=== PATIENT | male | born 1975 | race Caucasian/White ===

== ENCOUNTER 2017-06-09 14:54 | Emergency (ER) | payer BC ==
[2017-06-09 15:16] VITALS: BP 138/91
--- NOTE | 2017-06-09 15:46 | UC ---
Lower Extremity/Ankle HPI - HPI Summary HPI Summary: 2 days ago patient had his left great toe on a piece of furniture at his home. He yesterday while at work he noted he was unable to walk flat-footed needed to walk on [place] lateral side of his foot had severe amount of pain in his right great toe MP joint. Area is erythematous warm and tender to touch. Today it work he was essentially unable to wear his work shoes due to the pain in that joint - History of Current Complaint Chief Complaint: UCLowerExtremity Stated Complaint: TOE INJURY Time Seen by Provider: 06/09/17 15:39 Hx Obtained From: Patient Onset/Duration: Sudden Onset, Lasting Days - 2, Still Present, Worse Since - today Severity Initially: Moderate Severity Currently: Moderate Pain Intensity: 4 Pain Scale Used: 0-10 Numeric Aggravating Factor(s): Standing, Ambulation Alleviating Factor(s): Rest, Elevation Able to Bear Weight: Yes - with pain - Risk Factors Gout Risk Factors: Age Over 40, Male, Hypertension, Alcohol Abuse - Allergies/Home Medications Allergies/Adverse Reactions: Allergies Allergy/AdvReac Type Severity Reaction Status Date / Time hydrocodone Allergy Nausea Verified 06/09/17 15:07 BEES Allergy Severe Swelling Uncoded 09/11/13 12:29 PMH/Surg Hx/FS Hx/Imm Hx Previously Healthy: Yes Cardiovascular History: Hypertension - Has had blood pressures around between 130 and 140 ever since he was a teenager - Surgical History Surgical History: Yes Surgery Procedure, Year, and Place: RIGHT KNEE MULTIPLE SURGERIES 1995- 2003, [facility] 2009. left wrist surgery - Family History Known Family History: Positive: None - Social History Occupation: Employed Full-time Lives: With Family Alcohol Use: None Substance Use Type: None Smoking Status (MU): Former Smoker Type: Cigars Amount Used/How Often: "A FEW EVERY FEW WEEKS" CIGARS Have You Smoked in the Last Year: Yes Review of Systems Constitutional: Negative Skin: Negative Eyes: Negative ENT: Negative Respiratory: Negative Cardiovascular: Negative Gastrointestinal: Negative Genitourinary: Negative Motor: Decreased ROM - Left great toe Neurovascular: Negative Musculoskeletal: Arthralgia - Left great toe Neurological: Negative Psychological: Negative Is Patient Immunocompromised?: No All Other Systems Reviewed And Are Negative: Yes Physical Exam Triage Information Reviewed: Yes Appearance: Well-Appearing, Well-Nourished, Pain Distress Vital Signs: Initial Vital Signs Temp 97.5 F 06/09/17 15:10 Pulse 75 06/09/17 15:10 Resp 18 06/09/17 15:10 BP 138/91 06/09/17 15:10 Pulse Ox 98 06/09/17 15:10 Vital Signs Reviewed: Yes Eye Exam: Normal Eyes: Positive: Conjunctiva Clear ENT Exam: Normal ENT: Positive: Normal ENT inspection, Hearing grossly normal. Negative: Nasal congestion, Trismus, Muffled voice, Hoarse voice Dental Exam: Normal Neck exam: Normal Neck: Positive: Supple, Nontender Respiratory Exam: Normal Respiratory: Positive: Chest non-tender, No respiratory distress, No accessory muscle use Cardiovascular Exam: Normal Cardiovascular: Positive: RRR, Pulses Normal, Brisk Capillary Refill Musculoskeletal Exam: Other Musculoskeletal: Positive: Strength Limited @ - Left great toe, ROM Limited @ - Left great toe, Edema @ Neurological Exam: Normal Neurological: Positive: Alert, Muscle Tone Normal - Left great toe Psychological Exam: Normal Skin Exam: Normal Diagnostics - Radiology No standard instances Xray Interpretation: No Acute Changes Radiology Interpretation Completed By: ED Physician, Radiologist Lower Extremity Course/Dx - Course Course Of Treatment: Plan will be to draw a uric acid level. Postop shoe, indomethacin, follow with primary care doctor referral made for both blood pressure and gout. Offered low purine diet information as well. Will take patient out of work for the remainder of the week - Differential Dx/Diagnosis Provider Diagnoses: Gout left great toe, borderline hypertension untreated Discharge - Sign-Out/Discharge Documenting (check all that apply): Discharge - Discharge Plan Condition: Stable Disposition: HOME Prescriptions: Indomethacin CAP* [Indocin CAP*] 25 - 50 mg PO TID PRN #60 cap PRN Reason: Pain Patient Education Materials: Low Purine Diet (ED), Gout (ED) Forms: *Work Release Referrals: Harpreet Mckeon DO [Doctor of Osteopathy] - 4 Days - Billing Disposition and Condition Condition: STABLE Disposition: HOME
--- NOTE | 2017-06-09 16:42 | RAD ---
INDICATION: Pain at the proximal phalanx of the left great toe after stubbing injury TECHNIQUE: 3 views of the left great toe were obtained. FINDINGS: The visualized bones are normal alignment. Joint spaces appear maintained. No fracture is seen. IMPRESSION: NO EVIDENCE FOR FRACTURE. IF THE PATIENT'S SYMPTOMS PERSIST RECOMMEND FOLLOW-UP IMAGING.
== END 2017-06-09 17:19 | disposition home or self-care (01) ==
LOC: UCEAST 14:54
DX: M10.072 Idiopathic gout, left ankle and foot (principal); I10 Essential (primary) hypertension; Z88.5 Allergy status to narcotic agent; Z91.030 Bee allergy status; Z87.891 Personal history of nicotine dependence
CPT/HCPCS: 36415; 84550; 99203; G0463

== ENCOUNTER 2017-12-13 14:47 | Emergency (ER) | payer BC ==
[2017-12-13 15:09] VITALS: BP 137/98
--- NOTE | 2017-12-13 15:13 | UC ---
Skin Complaint HPI - HPI Summary HPI Summary: 42 yo male presents with diffuse rash. He tells me that this morning he was putting his boat away for the winter and was in a lot of brush in a wooded environment. About an hour later he noticed a rash to his LEFT arm and left trunk that was very itchy. He took a hot shower and noticed the rash later on his right neck and legs - prompting his visit to . He has not taken anything OTC or applied any creams/ointments. Denies fever, chills, difficulty breathing , SOB, face/throat swelling. - History of Current Complaint Chief Complaint: [facility] Time Seen by Provider: 12/13/17 15:13 Stated Complaint: RASHES ALL OVER Hx Obtained From: Patient Onset/Duration: Sudden Onset Current Severity: None Pain Intensity: 0 - Allergy/Home Medications Allergies/Adverse Reactions: Allergies Allergy/AdvReac Type Severity Reaction Status Date / Time hydrocodone Allergy Nausea Verified 12/13/17 15:09 BEES Allergy Severe Swelling Uncoded 09/11/13 12:29 Review of Systems Constitutional: Negative Skin: Rash Eyes: Negative ENT: Negative Respiratory: Negative Cardiovascular: Negative Gastrointestinal: Negative Neurological: Negative Psychological: Negative All Other Systems Reviewed And Are Negative: Yes PMH/Surg Hx/FS Hx/Imm Hx - Additional Past Medical History Additional PMH: None - Surgical History Surgical History: Yes Surgery Procedure, Year, and Place: RIGHT KNEE MULTIPLE SURGERIES 1995- 2003, [facility] 2009. left wrist surgery - Family History Known Family History: Positive: None - Social History Occupation: Employed Full-time Lives: With Family Alcohol Use: None Alcohol Amount: quit 3 months ago Substance Use Type: None Smoking Status (MU): Former Smoker Type: Cigars Amount Used/How Often: "A FEW EVERY FEW WEEKS" CIGARS Have You Smoked in the Last Year: Yes Physical Exam - Summary Physical Exam Summary: GENERAL: NAD. WDWN. No pain distress. SKIN: Diffuse mildly erythematous wheals worse on left arm and left trunk, but present on right neck and chest as well. No streaking, bleeding, or drainage. NECK: Supple. Nontender. No lymphadenopathy. CHEST: No accessory muscle use. Breathing comfortably and in no distress. CV: Pulses intact. Cap refill <2seconds NEURO: Alert. PSYCH: Age appropriate behavior. Triage Information Reviewed: Yes Vital Signs: Initial Vital Signs Temp 98.7 F 12/13/17 15:05 Pulse 97 12/13/17 15:05 Resp 14 12/13/17 15:05 BP 137/98 12/13/17 15:05 Pulse Ox 98 12/13/17 15:05 Vital Signs Reviewed: Yes Course/Dx - Course Course Of Treatment: Contact dermatitis. - Diagnoses Provider Diagnoses: Contact dermatitis Discharge - Sign-Out/Discharge Documenting (check all that apply): Patient Departure All imaging exams completed and their final reports reviewed: No Studies - Discharge Plan Condition: Stable Disposition: HOME Prescriptions: diPHENhydraMINE PO* [Benadryl PO 25 MG TAB*] 25 mg PO TID PRN #15 tab PRN Reason: Itching Hydrocortisone 1% CREAM* [Hytone Cream 1%*] 1 applic TOPICAL BID #1 tube predniSONE TAB* [Deltasone 20 MG TAB*] 40 mg PO DAILY #15 tab Patient Education Materials: Contact Dermatitis (DC), Urticaria (ED) Forms: *Work Release Referrals: No Primary Care Phys,NOPCP [Primary Care Provider] - Additional Instructions: If you develop a fever, shortness of breath, chest pain, new or worsening symptoms - please call your PCP or go to the ED. Your blood pressure was high at todays visit. Please see your primary provider within 4 weeks for recheck and re-evaluation. - Billing Disposition and Condition Condition: STABLE Disposition: Home - Attestation Statements Provider Attestation: Per institutional requirements, I have reviewed the chart, however, I was not consulted specifically or made aware of this patient by the midlevel provider. I did not personally evaluate, interact with , or disposition this patient.
== END 2017-12-13 15:30 | disposition home or self-care (01) ==
LOC: UCEAST 14:47
DX: L25.9 Unspecified contact dermatitis, unspecified cause (principal); Z88.5 Allergy status to narcotic agent; Z91.030 Bee allergy status; Z87.891 Personal history of nicotine dependence
CPT/HCPCS: 99212; G0463